=== PATIENT | male | born 1975 | race Caucasian/White ===

== ENCOUNTER 2020-03-08 18:29 | Emergency (ER) | payer SELFPAY | END 2020-03-08 19:04 | disposition home or self-care (01) | LOC: JVIRT 18:29 → EDBD 18:29 → JVIRT 19:04 | DX: Z03.818 Encounter for observation for suspected exposure to other biological agents ruled out (principal) | CPT/HCPCS: C9803; Q3014-GT; U0003 ==

== ENCOUNTER 2021-11-25 07:47 | Emergency (ER) | payer OTHER ==
[2021-11-25 08:00] VITALS: BP 128/73; PULSE 71; RESP 18; TEMP 97.7; BMI 28.6
[2021-11-25] MEDS ORDERED: KETOROLAC TROMETHAMINE 30 MG/1 ML VIAL IM ONE (09:25)
[2021-11-25] MEDS ORDERED: LIDOCAINE 5% TOPICAL PATCH TP ONE (09:25)
[2021-11-25] MEDS ORDERED: KETOROLAC TROMETHAMINE 30 MG/1 ML VIAL ONE (09:44)
[2021-11-25] MEDS ORDERED: LIDOCAINE 5% TOPICAL PATCH ONE (09:44)
[2021-11-25] MEDS ORDERED: LIDOCAINE PATCH REMOVAL MC SCH (22:00)
== END 2021-11-25 10:10 | disposition home or self-care (01) ==
LOC: JER 07:47
PROC: 3E023GC Introduction of Other Therapeutic Substance into Muscle, Percutaneous Approach (ICD-10-PCS; principal; 2021-11-25)
DX: M54.42 Lumbago with sciatica, left side (principal)
CPT/HCPCS: 99284-25